=== PATIENT | male | born 1960 | race Two or more races ===

== ENCOUNTER 2019-02-02 09:05 | Emergency (ER) | payer OTHER ==
[~2019-02-02] VITALS: Ht 175.3 cm; Wt 113.4 kg
[2019-02-02 09:12] VITALS: BP 157/73
[2019-02-02] MEDS ORDERED: IBUPROFEN 800 MG TAB PO ONE (10:30)
== END 2019-02-02 11:44 | disposition home or self-care (01) ==
LOC: ER 09:13
DX: S61.212A Laceration without foreign body of right middle finger without damage to nail, initial encounter (principal); L08.9 Local infection of the skin and subcutaneous tissue, unspecified; W26.8XXA Contact with other sharp object(s), not elsewhere classified, initial encounter; Y93.89 Activity, other specified; Y92.89 Other specified places as the place of occurrence of the external cause; Y99.8 Other external cause status

== ENCOUNTER 2019-02-06 15:08 | Emergency (ER) | payer OTHER ==
[~2019-02-06] VITALS: Ht 175.3 cm; Wt 113.4 kg
[2019-02-06 15:35] VITALS: BP 129/66
== END 2019-02-06 15:49 | disposition home or self-care (01) ==
LOC: ER 15:11
DX: S60.942A Unspecified superficial injury of right middle finger, initial encounter (principal); Z76.0 Encounter for issue of repeat prescription; X58.XXXA Exposure to other specified factors, initial encounter; Y93.89 Activity, other specified; Y92.89 Other specified places as the place of occurrence of the external cause; Y99.8 Other external cause status

== ENCOUNTER 2023-03-12 07:32 | Emergency (ER) | payer OTHER ==
[~2023-03-12] VITALS: Ht 177.8 cm; Wt 131.9 kg
[2023-03-12 08:44] VITALS: BP 130/94; PULSE 97; RESP 16; TEMP 98; O2SAT 97
[2023-03-12] MEDS ORDERED: BENZ100C97 PO (09:21)
== END 2023-03-12 09:31 | disposition home or self-care (01) ==
LOC: ER 07:32
DX: J40 Bronchitis, not specified as acute or chronic (principal)
CPT/HCPCS: 71046